=== PATIENT | male | born 1960 | race Caucasian/White ===

== ENCOUNTER 2024-02-23 14:14 | Emergency (ER) | payer BC ==
[~2024-02-23] VITALS: Ht 170.2 cm; Wt 65.4 kg
[2024-02-23] MEDS ORDERED: FLOMAX0.4 MG PO (14:44)
[2024-02-23] MEDS ORDERED: AMLODIPINE BESY10 MG PO (14:44)
[2024-02-23] MEDS ORDERED: XANAX0.25 MG PO (14:44)
[2024-02-23] MEDS ORDERED: BUPROPION HCL150 M2 PO (14:44)
[2024-02-23] MEDS ORDERED: VENTOLIN HFA18 GM INH (16:03)
[2024-02-23 16:08] VITALS: PULSE 83; RESP 16; TEMP 99.6; O2SAT 96
== END 2024-02-23 16:23 | disposition home or self-care (01) ==
LOC: FSED 14:22
DX: R06.00 Dyspnea, unspecified (principal); R07.9 Chest pain, unspecified; R10.13 Epigastric pain; I10 Essential (primary) hypertension; F41.9 Anxiety disorder, unspecified; F32.A Depression, unspecified; R94.31 Abnormal electrocardiogram [ECG] [EKG]
CPT/HCPCS: 71046; 80048; 80076; 82553; 84484; 85025; 85610; 93005; 99284